=== PATIENT | male | born 1995 | race Two or more races ===

== ENCOUNTER 2016-08-05 13:49 | Emergency (ER) | payer MEDICAID ==
[~2016-08-05] VITALS: Ht 167.6 cm; Wt 108.9 kg
[2016-08-05 13:55] VITALS: BP 124/84
== END 2016-08-05 17:12 | disposition home or self-care (01) ==
LOC: EDBD 13:49 → ER 14:05
DX: S20.212A Contusion of left front wall of thorax, initial encounter (principal); W22.8XXA Striking against or struck by other objects, initial encounter; Y93.89 Activity, other specified; Y99.8 Other external cause status; Y92.89 Other specified places as the place of occurrence of the external cause
CPT/HCPCS: 71101